=== PATIENT | male | born 1965 | race Asian ===

== ENCOUNTER 2017-06-23 08:42 | Emergency (ER) | payer SELFPAY ==
[~2017-06-23] VITALS: Ht 170.2 cm; Wt 51.3 kg
[2017-06-23 08:45] VITALS: BP_SYST 130
[2017-06-23 09:12] VITALS: BP_SYST 130
== END 2017-06-23 09:12 ==
LOC: SED 08:42
DX: Z02.89 Encounter for other administrative examinations (principal)
CPT/HCPCS: 99283